=== PATIENT | female | born 1990 | race Caucasian/White ===

== ENCOUNTER 2019-05-17 23:44 | Emergency (ER) | payer BC ==
[~2019-05-17] VITALS: Ht 154.9 cm; Wt 90.7 kg
--- NOTE | 2019-05-18 00:05 | NUR ---
PT AAOX4. AMBULATORY WITH STEADY GAIT. BIBS. C/O HAVING SORETHROAT AND COUGH SINCE THIS MORNING. NO MEDS TAKEN. AWAITING FOR MD FOR EVAL. NO ACUTE DISTRES NOTED. VSS. AFEBRILE.
[2019-05-18 00:10] VITALS: BP 130/76
--- NOTE | 2019-05-18 00:10 | NUR ---
STREP COLLECTED AND SENT
== END 2019-05-18 00:50 | disposition home or self-care (01) ==
LOC: ER 23:44
DX: J02.9 Acute pharyngitis, unspecified (principal)
CPT/HCPCS: 86403-TC; 87070-TC